=== PATIENT | female | born 1940 | race Hispanic/Latino ===

== ENCOUNTER → 2017-09-24 | Outpatient (CLI) | payer OTHER, MEDICARE ==
[~2017-09-24] MED LIST: ACET-48 PO; ASPI-555 PO; L GA1CAP2 PO; LEVO88TA7 PO; LUBI24CA2 PO; MELA1TAB8 PO; POLY30DR OP; VIT D3 PO
== END | disposition home or self-care (01) ==
LOC: RAH 12:24
PROVIDERS: ATTEND Internal Medicine
DX: M48.56XA Collapsed vertebra, not elsewhere classified, lumbar region, initial encounter for fracture (principal); N83.202 Unspecified ovarian cyst, left side
CPT/HCPCS: 72100; 76856

== ENCOUNTER → 2017-10-17 | Outpatient (CLI) | payer OTHER, MEDICARE | END | disposition home or self-care (01) | LOC: RAH 11:06 | PROVIDERS: ATTEND Internal Medicine | DX: K59.00 Constipation, unspecified (principal) | CPT/HCPCS: 74018 ==

== ENCOUNTER → 2018-08-19 | Outpatient (CLI) | payer OTHER, MEDICARE | END | disposition home or self-care (01) | LOC: RAH 12:08 | PROVIDERS: ATTEND Internal Medicine | DX: M25.551 Pain in right hip (principal) | CPT/HCPCS: 73502 ==

== ENCOUNTER → 2018-10-09 | Outpatient (CLI) | payer OTHER, MEDICARE | END | disposition home or self-care (01) | LOC: RAH 12:40 | PROVIDERS: ATTEND Internal Medicine | DX: R06.2 Wheezing (principal) | CPT/HCPCS: 71046 ==

== ENCOUNTER → 2018-10-31 | Outpatient (CLI) | payer OTHER, MEDICARE ==
[~2018-10-31] MED LIST changes: +IOHEXOL-350 50ML VIAL IV ONE
[2018-10-31 13:00] LABS: CREATININE 0.9 mg/dL (0.5-1.5)
== END | disposition home or self-care (01) ==
LOC: RAH 12:02
PROVIDERS: ATTEND Internal Medicine
DX: G50.0 Trigeminal neuralgia (principal)
CPT/HCPCS: 36415; 70470; 82565; 84520; Q9967

== ENCOUNTER → 2018-11-06 | Outpatient (CLI) | payer OTHER, MEDICARE ==
[~2018-11-06] MED LIST changes: +ALBUTEROL SULFATE 0.083% 2.5 MG/3 ML INH IH ONE; -IOHEXOL-350 50ML VIAL IV ONE
== END | disposition home or self-care (01) ==
LOC: RAH 11:20
PROVIDERS: ATTEND Internal Medicine Cardiovascular Disease
DX: J84.10 Pulmonary fibrosis, unspecified (principal); J47.9 Bronchiectasis, uncomplicated; M47.815 Spondylosis without myelopathy or radiculopathy, thoracolumbar region
CPT/HCPCS: 71250; 94060; 94727; 94729

== ENCOUNTER → 2018-11-18 | Outpatient (CLI) | payer SELFPAY ==
[~2018-11-18] MED LIST changes: -ALBUTEROL SULFATE 0.083% 2.5 MG/3 ML INH IH ONE
== END | disposition home or self-care (01) ==
LOC: OIH 12:10
PROVIDERS: ATTEND Internal Medicine Cardiovascular Disease
DX: Z13.6 Encounter for screening for cardiovascular disorders (principal)
CPT/HCPCS: 75571

== ENCOUNTER → 2018-11-22 | Outpatient (CLI) | payer OTHER, MEDICARE | END | disposition home or self-care (01) | LOC: SHCH 11:13 | PROVIDERS: ATTEND Internal Medicine Cardiovascular Disease | DX: M21.071 Valgus deformity, not elsewhere classified, right ankle (principal); M19.072 Primary osteoarthritis, left ankle and foot; M19.071 Primary osteoarthritis, right ankle and foot; M19.042 Primary osteoarthritis, left hand; M19.041 Primary osteoarthritis, right hand; I08.0 Rheumatic disorders of both mitral and aortic valves; I10 Essential (primary) hypertension | CPT/HCPCS: 73120; 73620; 93306 ==

== ENCOUNTER → 2018-12-24 | Outpatient (CLI) | payer OTHER, MEDICARE ==
[~2018-12-24] VITALS: Ht 154.9 cm; Wt 73.9 kg
[~2018-12-24] MED LIST changes: +REGADENOSON 0.4 MG/5 ML PF SYG IVP SCH
== END | disposition home or self-care (01) ==
LOC: SHCH 08:21
PROVIDERS: ATTEND Internal Medicine Cardiovascular Disease
DX: I25.89 Other forms of chronic ischemic heart disease (principal); I10 Essential (primary) hypertension
CPT/HCPCS: 78452; 93017; 96374; A9500 ×2; J2785

== ENCOUNTER 2019-02-18 05:58 | Day surgery (SDC) | payer OTHER, MEDICARE ==
[2019-02-14 11:18] LABS: BASOPHILS % (AUTO) 0.6 % (0.0-5.0); EOSINOPHILS % (AUTO) 1.8 % (0.0-8.0); HEMATOCRIT 37.8 % (36-48); LYMPHOCYTES % (AUTO) 24.2 % (21.0-51.0); MEAN CORPUSCULAR HEMOGLOBIN 32.8 pg (27.0-33.0); MEAN CORPUSCULAR HGB CONC 33.2 g/dL (32.0-36.0); MEAN CORPUSCULAR VOLUME 98.9 fL (79-99); MONOCYTES % (AUTO) 14.2 % (3.0-13.0); NEUTROPHILS % (AUTO) 59.2 % (40.0-77.0); PLATELET COUNT (AUTO) 192 K/uL (130-400); RED BLOOD CELL COUNT(AUTO) 3.82 MIL/uL (4.00-5.50); RED CELL DISTRIBUTION WIDTH 16.6 % (11.0-15.5); WHITE BLOOD COUNT (AUTO) 3.6 K/uL (4.8-10.8)
[2019-02-14 11:22] LABS: APPEARANCE,URINE CLEAR (CLEAR); BILIRUBIN,URINE NEGATIVE (NEGATIVE); COLOR,URINE YELLOW (YELLOW); GLUCOSE, URINE (UA) NEGATIVE (NEGATIVE); KETONES,URINE NEGATIVE (NEGATIVE); LEUKOCYTE ESTERASE ,URINE SMALL (NEGATIVE); NITRATE,URINE NEGATIVE (NEGATIVE); OCCULT BLOOD,URINE NEGATIVE (NEGATIVE); PROTEIN,URINE TRACE mg/dL (NEGATIVE); UROBILINOGEN,URINE 0.2 mg/dL (0.2-1.0)
[2019-02-14 11:31] LABS: CREATININE 0.9 mg/dL (0.5-1.5); POTASSIUM 4.4 mmol/L (3.5-5.1)
[2019-02-14 11:33] VITALS: BP 109/57
[2019-02-14 11:38] LABS: INR 1.01 (0.85-1.15); PARTIAL THROMBOPLASTIN TIME 27.8 SEC (26.3-35.5); PROTHROMBIN TIME 10.6 SEC (9.6-11.6)
[2019-02-14 11:58] LABS: BACTERIA,URINE Rare /HPF (None Seen); WBC,URINE 0-1 /HPF (0-1)
[2019-02-14 11:59] LABS: CALCIUM OXALATE CRYSTALS,UR Few /LPF (None Seen); MUCUS,URINE Moderate LPF (None Seen); SQUAMOUS EPITHELIAL CELL,UR Moderate /HPF (0-2)
--- NOTE | 2019-02-17 12:39 | NUR ---
CALLED [facility] AND REPORTED WBC 3.6, AND CHEST XRAY RESULTS, NO NEW ORDERS.
--- NOTE | 2019-02-17 12:41 | NUR ---
ALSO REPORTED LEUKEST SMALL AND MODERATE BACTERIA TO [facility], NO NEW ORDERS.
[2019-02-18] VITALS (9 sets, daily range): BP systolic 100–133; BP diastolic 46–63
[~2019-02-18] VITALS: Ht 157.5 cm; Wt 67.1 kg
[~2019-02-18 05:58] MED LIST changes: -ASPI-555 PO; +ATOR20TA65 PO; +CARAL PO; +DULO30CA52 PO; +ESOM40CA54 PO; +FLUT16H NASAL; +GABA-531 PO; -L GA1CAP2 PO; -LUBI24CA2 PO; -MELA1TAB8 PO; -POLY30DR OP; -REGADENOSON 0.4 MG/5 ML PF SYG IVP SCH; +SODIUM CHLORIDE 0.9% 1000ML 1,000 ML IV SCH; +SULF500T49 PO; -VIT D3 PO
[2019-02-18] MEDS ORDERED: SODIUM CHLORIDE 0.9% 1000ML 1,000 ML IV ONE (06:14)
[2019-02-18] MEDS ORDERED: SODIUM BICARB 50MEQ 50ML VIAL ONE (07:08)
[2019-02-18] MEDS ORDERED: IOHEXOL-350 50ML VIAL IV ONE (07:08)
[2019-02-18] MEDS ORDERED: LIDOCAINE HCL 1% 20 ML VIAL ONE (07:08)
[2019-02-18] MEDS ORDERED: IOHEXOL 350 MG/ML 100ML INFUS..BTL IV ONE (07:08)
[2019-02-18] MEDS ORDERED: NITROGLYCERIN 5 MG/ML 10 ML VIAL IV ONE (07:08)
[2019-02-18] MEDS ORDERED: LIDOCAINE HCL 2% 20ML ONE (07:18)
[2019-02-18] MEDS ORDERED: MIDAZOLAM HCL 1 MG/ML 2ML VIAL ONE (08:58)
[2019-02-18] MEDS ORDERED: MEPERIDINE-PF 25 MG/ML SYG ONE (08:58)
[2019-02-18] MEDS ORDERED: SODIUM CHLORIDE 0.9% 1000ML 1,000 ML IV SCH (09:31)
--- NOTE | 2019-02-18 10:05 | NUR ---
PT. RETURNED FROM WATER SAFETY INSTRUCTOR V/S STABLE, PT. HAD PERCLOSE TO THE RIGHT GROIN, WITH 4X4 DRESSING AND TEGADERM. NO BLEEDING AND NO HEMATOMA, NO PAIN. Addendum: 02/18/19 at 1033 by DEAN OSORIO RN RN PULES ARE PRESENT TO DP BILATERAL
--- NOTE | 2019-02-18 10:20 | NUR ---
PT. CONTINUES TO BE ON BEDREST FOR 4HR AND NS RUNNING @ 150 ML/HR. DRESSING IS INTACT AND DRY, NO HEMATOMA, NO PAIN AND NO BLEEDING.
--- NOTE | 2019-02-18 10:40 | NUR ---
PT. STABLE NO HEMATOMA, NO BLEEDING, NO PAIN DRESSING DRY AND INTACT.
--- NOTE | 2019-02-18 10:55 | NUR ---
PT. V/S STABLE NO BLEEDING NO HEMATOMA NO PAIN DRESSING DRY AND INTACT. DAUGHTER IN THE ROOM WITH PT. WILL CONTINUE TO MONITOR PT.
--- NOTE | 2019-02-18 11:05 | NUR ---
PT. ATE A LIGHT BREAKFAST NO COMPLICATION, V/S STABLE AND DRESSING DRY AND INTACT.
--- NOTE | 2019-02-18 11:35 | NUR ---
PT. CONTINUE TO BE STABLE NO HEMATOMA, NO BLEEDING, NO PAIN
--- NOTE | 2019-02-18 14:14 | NUR ---
pt v/s stable no hematoma, no bleeding, no pain dressing is dry and tact. pt left via wheelchair in pvt car with family. f/u appt scheduled.
== END 2019-02-18 14:15 ==
LOC: DAH 05:58
PROVIDERS: ATTEND Internal Medicine Cardiovascular Disease
DX: I25.10 Atherosclerotic heart disease of native coronary artery without angina pectoris (principal); J84.10 Pulmonary fibrosis, unspecified; R94.39 Abnormal result of other cardiovascular function study; K21.9 Gastro-esophageal reflux disease without esophagitis; E78.5 Hyperlipidemia, unspecified; E03.9 Hypothyroidism, unspecified; M06.9 Rheumatoid arthritis, unspecified; Z90.710 Acquired absence of both cervix and uterus; Z79.01 Long term (current) use of anticoagulants; Z79.899 Other long term (current) drug therapy
CPT/HCPCS: 36415; 71045; 80048; 81001; 85025; 85610; 85730; 93005; 93460; A4215; A4216; A4221; A4222; A4223 ×3; A4606; C1760; C1769; C1894 ×3; J1644; J2175; J2250; J3490 ×3; J7030; Q9967 ×2; 99156; 99157

== ENCOUNTER → 2020-01-09 | Outpatient (CLI) | payer OTHER, MEDICARE ==
[~2020-01-09] MED LIST changes: -ACET-48 PO; +ACET-49 PO; -SODIUM CHLORIDE 0.9% 1000ML 1,000 ML IV SCH
== END | disposition home or self-care (01) ==
LOC: SHCH 10:38
PROVIDERS: ATTEND Internal Medicine Cardiovascular Disease
DX: R01.1 Cardiac murmur, unspecified (principal); I07.1 Rheumatic tricuspid insufficiency
CPT/HCPCS: 93306; 93356

== ENCOUNTER 2020-02-14 16:09 | Inpatient (IN) | payer OTHER, MEDICARE ==
[~2020-02-14] VITALS: Ht 152.4 cm; Wt 61.5 kg
[2020-02-14 16:47] LABS: APPEARANCE,URINE CLEAR (CLEAR); BILIRUBIN,URINE NEGATIVE (NEGATIVE); COLOR,URINE YELLOW (YELLOW); GLUCOSE, URINE (UA) 100 mg/dL (NEGATIVE); KETONES,URINE NEGATIVE (NEGATIVE); LEUKOCYTE ESTERASE ,URINE NEGATIVE (NEGATIVE); NITRATE,URINE POSITIVE (NEGATIVE); OCCULT BLOOD,URINE NEGATIVE (NEGATIVE); PH,URINE 6.5 (5.0-8.0); PROTEIN,URINE 30 mg/dL (NEGATIVE)
[2020-02-14 16:56] LABS: BACTERIA,URINE Few /HPF (None Seen); SQUAMOUS EPITHELIAL CELL,UR Few /HPF (0-2); URIC ACID CRYSTALS,URINE Few /LPF (None Seen)
[2020-02-14] MEDS ORDERED: SODIUM CHLORIDE 0.9% 1000ML 1,000 ML IV ONE (17:33)
[2020-02-14] MEDS ORDERED: SODIUM CHLORIDE 0.9% 50 ML IV ONE (17:33)
[2020-02-14] MEDS ORDERED: CEFTRIAXONE SODIUM 1 GM ONE (17:34)
[2020-02-14 18:03] LABS: BASOPHILS % (AUTO) 0.1 % (0.0-5.0); EOSINOPHILS % (AUTO) 0.4 % (0.0-8.0); HEMATOCRIT 30.7 % (36-48); LYMPHOCYTES % (AUTO) 26.4 % (21.0-51.0); MEAN CORPUSCULAR HEMOGLOBIN 32.9 pg (27.0-33.0); MEAN CORPUSCULAR HGB CONC 32.2 g/dL (32.0-36.0); MONOCYTES % (AUTO) 6.4 % (3.0-13.0); NEUTROPHILS % (AUTO) 66.3 % (40.0-77.0); NUCLEATED RED BLOOD CELLS 0.3 % (0.0-0.19); PLATELET COUNT (AUTO) 149 K/uL (130-400); RED BLOOD CELL COUNT(AUTO) 3.01 MIL/uL (4.00-5.50); RED CELL DISTRIBUTION WIDTH 16.7 % (11.0-15.5); WHITE BLOOD COUNT (AUTO) 6.7 K/uL (4.8-10.8)
[2020-02-14 18:38] LABS: POTASSIUM 4.4 mmol/L (3.5-5.1)
[2020-02-14] MEDS ORDERED: ONDANSETRON HCL 4 MG/2 ML VIAL ONE (18:51)
[2020-02-14] MEDS ORDERED: MORPHINE SULFATE 4 MG/1ML SYG ONE (18:52)
[2020-02-14] MEDS ORDERED: PREDNISONE 20 MG TABLET ONE ×2 (18:52→20:25)
[2020-02-14] MEDS ORDERED: SODIUM CHLORIDE 0.9% 500ML 500 ML IV ONE (18:53)
[2020-02-14] MEDS ORDERED: ONDANSETRON HCL 4 MG/2 ML VIAL IV PRN (19:00)
[2020-02-14] MEDS ORDERED: ACETAMINOPHEN 325 MG TAB PO PRN ×2 (19:00)
[2020-02-14] MEDS: CEFTRIAXONE SODIUM 1 GM IV SCH (19:00)
[2020-02-14 19:08] LABS: ALBUMIN 2.5 g/dL (3.5-5.0); BILIRUBIN,TOTAL 0.2 mg/dL (0.2-1.0); CREATININE 0.9 mg/dL (0.5-1.5); TOTAL PROTEIN, SERUM 6.2 g/dL (6.0-8.3)
[2020-02-14] MEDS ORDERED: ACYCLOVIR 800 MG TABLET PO SCH (19:15)
[2020-02-14] MEDS: ZINC OXIDE OINT 30GM TUBE TP SCH (21:00)
[2020-02-14 23:15] VITALS: BP 113/62
[2020-02-15] MEDS: DOCUSATE SODIUM 100 MG CAP PO SCH ×3 (01:24→21:31)
[2020-02-15] MEDS: IPRATROPIUM/ALBUTEROL SULFATE 3 ML SOLUTION IH SCH ×4 (01:34→18:30)
[2020-02-15 03:25] VITALS: BP 120/61
[2020-02-15 05:28] LABS: HEMATOCRIT 31.7 % (36-48); MEAN CORPUSCULAR HEMOGLOBIN 32.7 pg (27.0-33.0); MEAN CORPUSCULAR HGB CONC 31.5 g/dL (32.0-36.0); MEAN CORPUSCULAR VOLUME 103.6 fL (79-99); RED BLOOD CELL COUNT(AUTO) 3.06 MIL/uL (4.00-5.50); RED CELL DISTRIBUTION WIDTH 16.6 % (11.0-15.5); WHITE BLOOD COUNT (AUTO) 5.3 K/uL (4.8-10.8)
[2020-02-15 05:32] LABS: CREATININE 0.8 mg/dL (0.5-1.5); POTASSIUM 4.9 mmol/L (3.5-5.1)
[2020-02-15 08:00] VITALS: BP 115/65
[2020-02-15] MEDS: ZINC OXIDE OINT 30GM TUBE TP SCH ×2 (09:00→21:31)
[2020-02-15] MEDS: MULTIVITAMINS/MINERALS/IRO TAB PO SCH (09:49)
[2020-02-15 11:00] VITALS: BP 95/64
[2020-02-15 16:00] VITALS: BP 107/58
[2020-02-15] MEDS: CEFTRIAXONE SODIUM 1 GM IV SCH (18:47)
[2020-02-15 19:40] VITALS: BP 116/49
--- NOTE | 2020-02-15 19:49 | NUR ---
INITIAL: Met w pt this afternoon to discuss dcp. Pt mentions that she lives w her spouse. Prior to admission she was independent w ambulation. She requires assistance w ADLs. and has provider services from 8:30am-12pm. Pt mentions that she has home O2 and cane. Pt's spouse provides transportation where needed. Pt mentions that she feels safe and comfortable to [place]. CM to continue to follow and wait for Md recommendations. Addendum: 02/15/20 at 1 by KASSANDRA VERDE Amended: Links added.
[2020-02-16] MEDS: IPRATROPIUM/ALBUTEROL SULFATE 3 ML SOLUTION IH SCH ×5 (00:03→23:08)
[2020-02-16 00:07] VITALS: BP 107/45
[2020-02-16 04:06] VITALS: BP 100/52
[2020-02-16 08:00] VITALS: BP 92/50
[2020-02-16] MEDS: MULTIVITAMINS/MINERALS/IRO TAB PO SCH (09:00)
[2020-02-16] MEDS: ZINC OXIDE OINT 30GM TUBE TP SCH ×2 (09:00→20:00)
[2020-02-16] MEDS: DOCUSATE SODIUM 100 MG CAP PO SCH ×2 (09:00→19:59)
[2020-02-16 11:33] VITALS: BP 98/50
[2020-02-16 16:00] VITALS: BP 104/58
[2020-02-16] MEDS: CEFTRIAXONE SODIUM 1 GM IV SCH (18:48)
--- NOTE | 2020-02-16 19:55 | NUR ---
MEDS SHIFT ASSESSMENT DONE, PLEASE REFER TO CHART. PT HAS NOT HAD ANY URINE OUTPUT YET AT THIS TIME. PT IS DUE TO VOID POST F/C REMOVAL. DUE MEDS ADMINISTERED, TOLERATED WELL. KEPT RESTED AND COMFORTABLE. WILL MONITOR PT. CALL LIGHT WITHIN REACH. Addendum: 02/16/20 at 2126 by TAVARES ROMEO RN RN Amended: Links added.
[2020-02-16 20:00] VITALS: BP 116/63
--- NOTE | 2020-02-16 20:40 | NUR ---
LAURENCE MENDOZA NP FOR HOSPITALIST, ON THE FLOOR MAKING ROUNDS. UPDATED ON PT STATUS PENDING URINE OUTPUT THUS PENDING D/C. 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
--- NOTE | 2020-02-16 23:50 | NUR ---
F/C NO URINE OUTPUT SINCE F/C DISCONTINUED AT 1800. PT TRIED TO SIT DOWN IN THE COMMODE BUT STILL UNABLE TO URINATE. BLADDER SCAN USED AND RESULTED TO 548CC OF URINE IN THE BLADDER. LAURENCE MENDOZA FIBERGLASSER FOR HOSPITALIST, MADE AWARE VIA PHONE AND ORDERED TO RE-INSERT F/C. RE-INSERTED F/C URDU 16 THEN SECURED TO LEG TO BSD. DRAINED 500CC OF URINE. POSITIONED PT COMFORTABLY IN BED. WILL CONTINUE TO MONITOR.
[2020-02-17] VITALS: BP 117/63
--- NOTE | 2020-02-17 01:48 | NUR ---
ROUNDS PT IS RESTING WELL, FAIRLY ASLEEP. NO DISTRESS NOTED. KEPT RESTED AND UNDISTURBED FOR NOW. WILL MONITOR PT. CALL LIGHT WITHIN REACH.
[2020-02-17 04:00] VITALS: BP 108/63
--- NOTE | 2020-02-17 06:05 | NUR ---
ROUNDS PT STILL FAIRLY ASLEEP. NO DISTRESS NOTED. KEPT COMFORTABLE IN BED. FOR MORE CARE.
[2020-02-17] MEDS: IPRATROPIUM/ALBUTEROL SULFATE 3 ML SOLUTION IH SCH ×3 (06:37→18:29)
[2020-02-17 08:00] VITALS: BP 97/50
[2020-02-17] MEDS: DOCUSATE SODIUM 100 MG CAP PO SCH ×2 (09:53→20:19)
[2020-02-17] MEDS: ZINC OXIDE OINT 30GM TUBE TP SCH ×2 (09:53→20:20)
--- NOTE | 2020-02-17 09:54 | NUR ---
Notified "Delaney" at Dr. Cosme's office of new consult for urinary retention.
[2020-02-17] MEDS: MULTIVITAMINS/MINERALS/IRO TAB PO SCH (09:58)
[2020-02-17 11:40] VITALS: BP 123/66
[2020-02-17 16:00] VITALS: BP 102/51
--- NOTE | 2020-02-17 16:46 | NUR ---
RD NOTIFICATION Pt admitted with UTI, Urinary Retention. Advanced Age. Hypoalbuminemia. Pt tolerating Heart Healthy, Puree diet order with no report of GI distress. Fair PO intake at 75%. LBM 02/15/20. MVI, Zinc supplementation in place. Recommend 60mL ProMod QD. RD to continue to monitor. Please notify as additional nutrition concerns arise. Thank you.
--- NOTE | 2020-02-17 18:56 | NUR ---
DR. LIAO IN TO SEE PT.ORDERS GIVEN AND ENTERED. CONSULTED BLOOD BANK SPECIALIST, DR. ANTONIO ON, PAGED AND RETURNED CALL .
[2020-02-17] MEDS ORDERED: IOHEXOL-350 75 ML VIAL IV ONE (19:01)
[2020-02-17] MEDS: CEFTRIAXONE SODIUM 1 GM IV SCH (19:04)
[2020-02-17 20:00] VITALS: BP 117/57
--- NOTE | 2020-02-17 20:20 | NUR ---
MEDS SHIFT ASSESSMENT DONE, PLEASE REFER TO CHART. DUE MEDS ADMINISTERED, TOLERATED WELL. RE-POSITIONED COMFORTABLY IN BED. CALL LIGHT WITHIN REACH. WILL MONITOR PT. Addendum: 02/17/20 at 2246 by TAVARES ROMEO RN RN Amended: Links added.
[2020-02-17] MEDS: CLOTRIMAZOLE 30 GM CREAM.GM. TP SCH (21:58)
[2020-02-18] VITALS: BP 94/54
[2020-02-18] MEDS: IPRATROPIUM/ALBUTEROL SULFATE 3 ML SOLUTION IH SCH ×3 (00:41→11:07)
--- NOTE | 2020-02-18 02:00 | NUR ---
ROUNDS PT RESTING WELL, NO DISTRESS NOTED. NO COMPLAINTS VERBALIZED. KEPT RESTED. ENCOURAGED TO GO BACK TO SLEEP. WILL MONITOR PT.
[2020-02-18 04:00] VITALS: BP 93/52
[2020-02-18 08:34] VITALS: BP 104/63
[2020-02-18] MEDS ORDERED: FLUCONAZOLE 100 MG TAB PO SCH (09:00)
[2020-02-18] MEDS ORDERED: VALA10002 PO (11:34)
[2020-02-18 12:17] VITALS: BP 96/51
[2020-02-18] MEDS: DOCUSATE SODIUM 100 MG CAP PO SCH (12:46)
[2020-02-18] MEDS: MULTIVITAMINS/MINERALS/IRO TAB PO SCH (12:46)
[2020-02-18] MEDS: VALACYCLOVIR HCL 500 MG TABLET PO SCH ×2 (12:49→14:57)
[2020-02-18] MEDS: CLOTRIMAZOLE 30 GM CREAM.GM. TP SCH (12:50)
[2020-02-18] MEDS: ZINC OXIDE OINT 30GM TUBE TP SCH (12:51)
--- NOTE | 2020-02-18 14:45 | NUR ---
PT D/C HOME USING TEACH BACK TECHNIQUE RE; Follow up with Dr Mcintyre on 02/25/20 at 10.15 am Follow up with Dr Greenwood in 3 to 5 days to follow up on the Urinary retention and possible removal of Bolden catheter OR referral to Dr. Cosme. CARE OF THE BOLDEN CATH HOW TO CLAMP AND PERFORM PERIANAL CARE. HAND WASHING. AAOX3, DENIES ANY NEEDS NOR QUESTIONS AT THIS TIME. IV OUT INTACT, NO BLEEDING. DAUGHTER AT BEDSIDE.
[2020-02-18] MEDS ORDERED: FLUC200T PO (16:31)
[2020-02-24 18:09] LABS: HERPES SIMPLEX VIRUS-1 BY PCR Negative (Negative); HERPES SIMPLEX VIRUS-2 BY PCR Negative (Negative)
== END 2020-02-18 14:50 | disposition home or self-care (01) | DRG 596 ==
LOC: EDH 16:09 → EDHIP 18:56 → OBSVTOIN 18:56 → 3BH 22:45
PROVIDERS: ADMIT Internal Medicine; ATTEND Internal Medicine
DX: B02.9 Zoster without complications (principal); N39.0 Urinary tract infection, site not specified; E46 Unspecified protein-calorie malnutrition; M32.9 Systemic lupus erythematosus, unspecified; E03.9 Hypothyroidism, unspecified; J84.10 Pulmonary fibrosis, unspecified; D64.9 Anemia, unspecified; K21.9 Gastro-esophageal reflux disease without esophagitis; M54.9 Dorsalgia, unspecified; N83.202 Unspecified ovarian cyst, left side; Z68.26 Body mass index [BMI] 26.0-26.9, adult; R33.9 Retention of urine, unspecified
CPT/HCPCS: 36415; 74178; 76882; 80048; 80053; 81001; 83605; 85025; 85027; 87040; 87088; 87529; 94640; 94664; A4344; G0378; J0696; J2270; J2405; J7030; J7040; Q9967

== ENCOUNTER → 2020-03-03 | Outpatient (CLI) | payer OTHER, MEDICARE ==
[~2020-03-03] MED LIST changes: +BALSAM PERU/CASTOR OIL 60 GM TUBE TP ONE; +FLUC200T PO; +VALA10002 PO
== END | disposition home or self-care (01) ==
LOC: WHH 13:00
PROVIDERS: ATTEND Specialist
DX: L98.412 Non-pressure chronic ulcer of buttock with fat layer exposed (principal); L98.492 Non-pressure chronic ulcer of skin of other sites with fat layer exposed; K21.9 Gastro-esophageal reflux disease without esophagitis; E03.9 Hypothyroidism, unspecified; J84.10 Pulmonary fibrosis, unspecified; M32.9 Systemic lupus erythematosus, unspecified; I07.1 Rheumatic tricuspid insufficiency; M35.00 Sjogren syndrome, unspecified; M19.90 Unspecified osteoarthritis, unspecified site; F32.9 Major depressive disorder, single episode, unspecified; F41.9 Anxiety disorder, unspecified
CPT/HCPCS: A6260; G0463

== ENCOUNTER → 2020-03-17 | Outpatient (CLI) | payer OTHER, MEDICARE ==
[~2020-03-17] MED LIST changes: -BALSAM PERU/CASTOR OIL 60 GM TUBE TP ONE
== END | disposition home or self-care (01) ==
LOC: WHH 13:30
PROVIDERS: ATTEND Specialist
DX: T81.41XD Infection following a procedure, superficial incisional surgical site, subsequent encounter (principal); L98.412 Non-pressure chronic ulcer of buttock with fat layer exposed; L98.492 Non-pressure chronic ulcer of skin of other sites with fat layer exposed; K21.9 Gastro-esophageal reflux disease without esophagitis; E03.9 Hypothyroidism, unspecified; J41.0 Simple chronic bronchitis; M32.9 Systemic lupus erythematosus, unspecified; I70.1 Atherosclerosis of renal artery; M35.00 Sjogren syndrome, unspecified; M19.90 Unspecified osteoarthritis, unspecified site; F32.9 Major depressive disorder, single episode, unspecified; F41.9 Anxiety disorder, unspecified
CPT/HCPCS: G0463

== ENCOUNTER → 2020-03-18 | Outpatient (CLI) | payer OTHER, MEDICARE | END | disposition home or self-care (01) | LOC: RAH 10:00 | PROVIDERS: ATTEND Obstetrics & Gynecology | DX: N83.202 Unspecified ovarian cyst, left side (principal) | CPT/HCPCS: 76856 ==

== ENCOUNTER → 2020-03-24 | Outpatient (CLI) | payer OTHER, MEDICARE | LOC: WHH 13:30 | PROVIDERS: ATTEND Specialist | DX: L98.412 Non-pressure chronic ulcer of buttock with fat layer exposed (principal); L98.492 Non-pressure chronic ulcer of skin of other sites with fat layer exposed; I10 Essential (primary) hypertension; H26.9 Unspecified cataract; K21.9 Gastro-esophageal reflux disease without esophagitis; E03.9 Hypothyroidism, unspecified; J84.10 Pulmonary fibrosis, unspecified; M32.9 Systemic lupus erythematosus, unspecified; I07.1 Rheumatic tricuspid insufficiency; M35.00 Sjogren syndrome, unspecified; M19.90 Unspecified osteoarthritis, unspecified site; F32.9 Major depressive disorder, single episode, unspecified; F41.9 Anxiety disorder, unspecified; Z90.49 Acquired absence of other specified parts of digestive tract | CPT/HCPCS: G0463 ==

== ENCOUNTER 2020-03-31 13:30 | Outpatient (CLI) | payer OTHER, MEDICARE | END 2020-03-31 16:03 | disposition home or self-care (01) | LOC: WHH 13:30 | PROVIDERS: ATTEND Specialist | DX: L98.412 Non-pressure chronic ulcer of buttock with fat layer exposed (principal); L98.492 Non-pressure chronic ulcer of skin of other sites with fat layer exposed; I10 Essential (primary) hypertension; H26.9 Unspecified cataract; K21.9 Gastro-esophageal reflux disease without esophagitis; E03.9 Hypothyroidism, unspecified; J84.10 Pulmonary fibrosis, unspecified; M32.9 Systemic lupus erythematosus, unspecified; I07.1 Rheumatic tricuspid insufficiency; M35.00 Sjogren syndrome, unspecified; M19.90 Unspecified osteoarthritis, unspecified site; F32.9 Major depressive disorder, single episode, unspecified; F41.9 Anxiety disorder, unspecified; Z90.49 Acquired absence of other specified parts of digestive tract | CPT/HCPCS: G0463 ==

== ENCOUNTER → 2020-05-10 | Outpatient (CLI) | payer OTHER, MEDICARE | END | disposition home or self-care (01) | LOC: RAH 16:08 | PROVIDERS: ATTEND Internal Medicine | DX: S32.049A Unspecified fracture of fourth lumbar vertebra, initial encounter for closed fracture (principal); S32.019A Unspecified fracture of first lumbar vertebra, initial encounter for closed fracture; M47.816 Spondylosis without myelopathy or radiculopathy, lumbar region; X58.XXXA Exposure to other specified factors, initial encounter; Y93.89 Activity, other specified; Y92.89 Other specified places as the place of occurrence of the external cause; Y99.8 Other external cause status | CPT/HCPCS: 72100 ==

== ENCOUNTER → 2020-06-08 | Outpatient (CLI) | payer OTHER, MEDICARE | END | disposition home or self-care (01) | LOC: RAH 10:09 | PROVIDERS: ATTEND Internal Medicine | DX: M54.5 Low back pain (principal); M48.56XS Collapsed vertebra, not elsewhere classified, lumbar region, sequela of fracture | CPT/HCPCS: 72148 ==

== ENCOUNTER → 2020-09-23 | Outpatient (CLI) | payer OTHER, MEDICARE | END | disposition home or self-care (01) | LOC: RAH 13:10 | PROVIDERS: ATTEND Physical Medicine & Rehabilitation | DX: K14.6 Glossodynia (principal); H70.91 Unspecified mastoiditis, right ear | CPT/HCPCS: 70551 ==

== ENCOUNTER → 2021-11-18 | Outpatient (CLI) | payer OTHER, MEDICARE | END | disposition home or self-care (01) | LOC: RAH 07:44 | PROVIDERS: ATTEND Internal Medicine | DX: R94.5 Abnormal results of liver function studies (principal); K76.0 Fatty (change of) liver, not elsewhere classified | CPT/HCPCS: 76705 ==

== ENCOUNTER → 2022-05-24 | Outpatient (CLI) | payer OTHER, MEDICARE ==
[2022-05-24 12:49] LABS: BASOPHILS % (AUTO) 0.4 % (0.0-5.0); EOSINOPHILS % (AUTO) 1.3 % (0.0-8.0); HEMATOCRIT 38.7 % (36-48); LYMPHOCYTES % (AUTO) 42.3 % (21.0-51.0); MEAN CORPUSCULAR VOLUME 103.5 fL (79-99); MONOCYTES % (AUTO) 11.8 % (3.0-13.0); NEUTROPHILS % (AUTO) 43.6 % (40.0-77.0); PLATELET COUNT (AUTO) 224 K/uL (130-400); RED BLOOD CELL COUNT(AUTO) 3.74 MIL/uL (4.00-5.50); RED CELL DISTRIBUTION WIDTH 15.1 % (11.0-15.5); WHITE BLOOD COUNT (AUTO) 5.4 K/uL (4.8-10.8)
[2022-05-24 13:18] LABS: ALBUMIN 3.5 g/dL (3.5-5.0); CREATININE 0.8 mg/dL (0.5-1.5); POTASSIUM 4.6 mmol/L (3.5-5.1); THYROID STIMULATING HORMONE 2.06 uIU/mL (0.36-3.74); TOTAL PROTEIN, SERUM 6.7 g/dL (6.0-8.3)
== END | disposition home or self-care (01) ==
LOC: LAB 11:29
PROVIDERS: ATTEND Internal Medicine
DX: R60.0 Localized edema (principal); E03.9 Hypothyroidism, unspecified; D64.9 Anemia, unspecified
CPT/HCPCS: 36415; 80053; 84443; 85025

== ENCOUNTER → 2023-04-25 | Outpatient (CLI) | payer OTHER, MEDICARE | END | disposition home or self-care (01) | LOC: RAH 07:49 | PROVIDERS: ATTEND Physical Medicine & Rehabilitation | DX: M54.50 Low back pain, unspecified (principal); G89.29 Other chronic pain | CPT/HCPCS: 72146 ==

== ENCOUNTER → 2024-07-11 | Outpatient (CLI) | payer OTHER, MEDICARE ==
[~2024-07-11] MED LIST changes: -ATOR20TA65 PO; -CARAL PO; -DULO30CA52 PO; -ESOM40CA54 PO; +ESOM40CA66 PO; +FAMO40TA7 PO; -FLUC200T PO; -FLUT16H NASAL; -GABA-531 PO; +HYDR200T75 PO; +LORA10TA7 PO; +PRED5TAB PO; +PREG100C56 PO; -SULF500T49 PO; -VALA10002 PO
--- NOTE | 2024-07-11 14:44 | HMCIMG ---
MR SPINAL CANAL, LUMBAR WO CON REASON: WEDGE COMPRESSION FX 1ST LUMBAR VERTEBRAE COMPARISON: CT abdomen 04/10/2024. TECHNIQUE: Routine lumbar imaging protocol was performed. Exam was performed without IV contrast. FINDINGS: There is 50% superior endplate compression deformity of the L1 vertebral body. There is no retropulsed fragment. There are mild superior endplate compressions of L2, L3 and L4. These are all stable findings compared to previous CT scan. There are no new compression fractures. There is no osseous marrow edema to suggest an acute process. Axial images show widely patent spinal canal and thecal sac. Neural foramina are preserved. There are moderate degenerative changes in the facets. IMPRESSION: 1. 50% compression deformity of the L1 vertebral body which is stable compared to prior studies. 2. Mild superior endplate compression deformities L2-L4, also stable. 3. No acute finding, no new finding, no evidence of disc herniation or spinal stenosis.
== END | disposition home or self-care (01) ==
LOC: RAH 13:02
PROVIDERS: ATTEND Internal Medicine
DX: S32.010A Wedge compression fracture of first lumbar vertebra, initial encounter for closed fracture (principal); M54.16 Radiculopathy, lumbar region; M54.50 Low back pain, unspecified; M43.06 Spondylolysis, lumbar region; M47.816 Spondylosis without myelopathy or radiculopathy, lumbar region; X58.XXXA Exposure to other specified factors, initial encounter; Y93.89 Activity, other specified; Y92.89 Other specified places as the place of occurrence of the external cause; Y99.8 Other external cause status
CPT/HCPCS: 72148